=== PATIENT | female | born 1940 | race Native Hawaiian/Other Pacific Islander ===

== ENCOUNTER 2020-11-27 16:06 | Emergency (ER) | payer OTHER ==
[~2020-11-27] VITALS: Ht 162.6 cm; Wt 54.4 kg
[2020-11-27 16:06] VITALS: BP 154/75; TEMP 98.8
[2020-11-27 16:30] LABS: PLATELET COUNT 304 K/uL (152-353)
[2020-11-27 16:36] LABS: POTASSIUM 4.1 mmol/L (3.6-5.2)
[2020-11-27] MEDS ORDERED: ACET650S18 RE (22:15)
[2020-11-27] MEDS ORDERED: TYLENOL325 MG PO (22:17)
[2020-11-27] MEDS ORDERED: AMLO2.5T PO (22:19)
[2020-11-27] MEDS ORDERED: ANTACID PO (22:21)
[2020-11-27] MEDS ORDERED: [UNRECOGNIZED DRUG - OTHER] PO (22:21)
[2020-11-27] MEDS ORDERED: DONE5TAB PO (22:24)
[2020-11-27] MEDS ORDERED: ARIPIPRAZOLE2 MG PO (22:25)
[2020-11-27] MEDS ORDERED: ACID CONTROL20 MG PO (22:35)
[2020-11-27] MEDS ORDERED: ARNUITY EL50 MCG/ACT INH (22:38)
[2020-11-27] MEDS ORDERED: [UNRECOGNIZED DRUG - OTHER] PO (22:45)
[2020-11-27] MEDS ORDERED: HYDROCODONE BIT1 TA1 PO (22:47)
[2020-11-27] MEDS ORDERED: IMODIUM A-D2 MG PO (22:58)
[2020-11-27] MEDS ORDERED: ANTI-DIARR1 MG/7.5 M PO (23:11)
[2020-11-27] MEDS ORDERED: LORA1TAB17 PO (23:13)
[2020-11-27] MEDS ORDERED: MILK OF MA400 MG/5 M PO (23:16)
[2020-11-27] MEDS ORDERED: CLOP75TA2 PO (23:17)
[2020-11-27] MEDS ORDERED: MONTELUKAST SOD10 MG PO (23:17)
[2020-11-27] MEDS ORDERED: QUETIAPINE50 MG PO (23:19)
[2020-11-27] MEDS ORDERED: TRAMADOL HYDROC50 MG PO (23:20)
[2020-11-27] MEDS ORDERED: BISA10SU8 RE (23:25)
[2020-11-27] MEDS ORDERED: FLEET ENEMA RE (23:32)
[2020-12-13] MEDS ORDERED: OLAN2.5T2 PO (09:17)
[2020-12-13] MEDS ORDERED: MONT10TA PO (09:17)
[2020-12-13] MEDS ORDERED: MAGNSUS68 PO (09:18)
[2020-12-13] MEDS ORDERED: LORA10TA3 PO (09:19)
[2020-12-13] MEDS ORDERED: MEMA5TAB PO (09:19)
[2020-12-13] MEDS ORDERED: LOPE2CAP17 PO (09:19)
[2020-12-13] MEDS ORDERED: FAMOTIDINE20 MG PO (09:20)
[2020-12-13] MEDS ORDERED: Flonase Nasal Inhale NAS (09:20)
[2020-12-13] MEDS ORDERED: FLUD0.1T PO (09:20)
[2020-12-13] MEDS ORDERED: ESCI10TA PO (09:21)
[2020-12-13] MEDS ORDERED: DONE5TAB PO (09:21)
[2020-12-13] MEDS ORDERED: DOCU100C10 PO (09:21)
[2020-12-13] MEDS ORDERED: CLOP75TA2 PO (09:21)
[2020-12-13] MEDS ORDERED: ULTRAM 50MG TAB PO (09:22)
[2020-12-13] MEDS ORDERED: ATOR20TA2 PO (09:22)
[2020-12-13] MEDS ORDERED: AMLODIPINE BESYLATE PO (09:22)
[2020-12-13] MEDS ORDERED: ACET-206 PO (09:22)
== END 2020-11-27 17:36 | disposition other institution (70) ==
LOC: ED 16:09
PROVIDERS: Family Medicine
DX: R46.89 Other symptoms and signs involving appearance and behavior (principal); I10 Essential (primary) hypertension; Z11.59 Encounter for screening for other viral diseases; Z04.6 Encounter for general psychiatric examination, requested by authority
CPT/HCPCS: 80053; 81000; 85027; 87635; 93005; 99283; U0003